=== PATIENT | male | born 1995 | race Caucasian/White ===

== ENCOUNTER 2018-11-14 04:17 | Emergency (ER) | payer OTHER ==
[~2018-11-14] VITALS: Ht 182.9 cm; Wt 57.0 kg
[2018-11-14 04:31] VITALS: BP 108/54
== END 2018-11-14 04:56 | disposition home or self-care (01) ==
LOC: M ED 04:17
DX: F10.129 Alcohol abuse with intoxication, unspecified (principal)
CPT/HCPCS: 99284; G0480